=== PATIENT | female | born 1955 | race Caucasian/White ===

== ENCOUNTER 2019-01-27 15:31 | Emergency (ER) | payer MEDICARE ==
[2019-01-27 15:39] VITALS: RESP 18
[2019-01-27] MEDS ORDERED: PANTOPRAZOLE 40 MG/10 ML VIAL IVP STA (16:08)
[2019-01-27] MEDS ORDERED: SODIUM CHLORIDE 0.9% 1,000 ML IV STA (16:08)
[2019-01-27] MEDS ORDERED: MORPHINE SULFATE 4 MG/ML SYRINGE IVP STA (16:13)
--- NOTE | 2019-01-27 16:25 | ED ---
GI Bleed HPI - General Chief complaint: GI Bleed Stated complaint: Rectal bleeding Time Seen by Provider: 01/27/19 15:41 Source: patient Mode of arrival: ambulatory Limitations: no limitations - History of Present Illness Initial comments: Patient is a 63-year-old female presenting to the emergency Department with complaints of bloody diarrhea that started yesterday. Patient states she's been having left upper quadrant pain for approximately 10 days and then 2 days ago started having nausea, one episode of vomiting as well as diarrhea that is descr ibed as black, tarry, red in nature. Patient has had about 10 bowel movements yesterday and today. Patient did go to her PCP, Dr. Mojica, today and they then sent her to the ER for further evaluation. Patient describes her abdominal pain as left upper quadrant, underneath her ribs that sometimes radiates to her left flank area. It is constant in nature and feels like a pressure, sharp pain. Th ere is no alleviating or aggravating factors. Patient denies any trauma to the area. Patient admits to hysterectomy and tubal ligation, no other abdominal surgeries. Patient does admit to needing a blood transfusion approximately 3 years ago. Patient has been eating and drinking as normal until about 2 days ago. Patient has been having regular bowel movements up until the diarrhea started 2 days ago. Patient denies chest pain, shortness of breath, headache. Patient has no other complaints at this time. Upon arrival to the ER, vital signs are stable. - Related Data Previous Rx's Medication Instructions Recorded Ondansetron Odt [Zofran Odt] 4 mg PO Q8HR PRN #10 tab 01/27/19 Allergies Allergy/AdvReac Type Severity Reaction Status Date / Time lisinopril Allergy Anaphylaxis Verified 01/27/19 15:34 Penicillins Allergy Rash/Hives Verified 01/27/19 15:34 Review of Systems ROS Statement: Those systems with pertinent positive or pertinent negative responses have been documented in the HPI. ROS Other: All systems not noted in ROS Statement are negative. Past Medical History Past Medical History: Fibromyalgia, GERD/Reflux, Hypertension, Thyroid Disorder History of Any Multi-Drug Resistant Organisms: None Reported Past Surgical History: Hysterectomy Additional Past Surgical History / Comment(s): thyroidectomy Past Psychological History: Anxiety Smoking Status: Never smoker Past Alcohol Use History: None Reported Past Drug Use History: None Reported General Exam - General Exam Comments Initial Comments: GENERAL: Patient appears slightly pale, and in no acute distress. HEAD: Atraumatic, normocephalic. EYES: Pupils equal round and reactive to light, extraocular movements intact, sclera anicteric, conjunctiva are normal. ENT: TMs normal, nares patent, oropharynx clear without exudates. Moist mucous membranes. NECK: Normal range of motion, supple without lymphadenopathy or JVD. LUNGS: Breath sounds clear to auscultation bilaterally and equal. No wheezes rales or rhonchi. HEART: Regular rate and rhythm without murmurs, rubs or gallops. ABDOMEN: Tender to palpation of the left upper quadrant as well as left lower ribs and left flank. Soft, normoactive bowel sounds. No guarding, no rebound. No masses appreciated. : Deferred EXTREMITIES: Normal range of motion, no pitting or edema. No clubbing or cyanosis. NEUROLOGICAL: Normal speech, normal gait. PSYCH: Normal mood, normal affect. SKIN: Warm, Dry, normal turgor, no rashes or lesions noted. There are some mild bruises that appear to be a few days old, one on the left side of the abdomen, one on the left flank area, and one in the mid abdomen. Limitations: no limitations Rectal exam: Present: normal rectal tone, heme (-) stool, hemorrhoids (Very mild, small external hemorrhoid). Absent: fecal impaction, mass, tenderness Course Vital Signs 01/27/19 15:34 Temperature 97.8 F Pulse Rate 66 Respiratory 18 Rate Blood Pressure 122/81 O2 Sat by Pulse 99 Oximetry Medical Decision Making - Medical Decision Making Patient is a 63-year-old female sent from Dr. Mojica's office for possible rectal bleeding x 1 day as well as left upper quadrant pain 10 days. No fevers, vital signs are stable. Mild leukocytosis at 12.1, rest of the labs show no acute abnormalities. Troponin is normal. Lipase is normal. Lactic acid is 1.5. UA is normal. Stool occult blood is negative. CT of the abdomen shows left colonic wall thickening, colitis is favored over diverticulitis. An additional finding of an increase in size of the left adrenal mass measuring 2.4 cm, recommend follow-up MRI. I discussed these findings with the patient and her symptoms are most likely related to colitis. Patient received fluids as well as Zofran and pain medication and reports improvement in her symptoms. Patient is stable for discharge at this time and she is in agreement with this plan of care. Patient will be discharged with Zofran to take as needed for nausea. Patient will follow-up with Dr. Mojica. Return parameters were discussed with the patient and she verbalized understanding. Case discussed with Dr. Douglas. - Lab Data Result diagrams: 01/27/19 15:45 01/27/19 15:45 Lab Results 01/27/19 01/27/19 01/27/19 Range/Units 15:45 15:45 15:45 WBC 12.1 H (3.8-10.6) k/uL RBC 4.87 (3.80-5.40) m/uL Hgb 13.9 (11.4-16.0) gm/dL Hct 44.0 (34.0-46.0) % MCV 90.3 (80.0-100.0) fL MCH 28.6 (25.0-35.0) pg MCHC 31.7 (31.0-37.0) g/dL RDW 14.1 (11.5-15.5) % Plt Count 245 (150-450) k/uL Neutrophils % 69 % Lymphocytes % 24 % Monocytes % 4 % Eosinophils % 2 % Basophils % 0 % Neutrophils # 8.4 H (1.3-7.7) k/uL Lymphocytes # 2.9 (1.0-4.8) k/uL Monocytes # 0.5 (0-1.0) k/uL Eosinophils # 0.2 (0-0.7) k/uL Basophils # 0.0 (0-0.2) k/uL PT (9.0-12.0) sec INR (<1.2) APTT (22.0-30.0) sec Sodium 143 (137-145) mmol/L Potassium 3.7 (3.5-5.1) mmol/L Chloride 104 (98-107) mmol/L Carbon Dioxide 30 (22-30) mmol/L Anion Gap 9 mmol/L BUN 23 H (7-17) mg/dL Creatinine 1.06 H (0.52-1.04) mg/dL Est GFR (CKD-EPI)AfAm 65 (>60 ml/min/1.73 sqM) Est GFR (CKD-EPI)NonAf 57 (>60 ml/min/1.73 sqM) Glucose 98 (74-99) mg/dL Plasma Lactic Acid Jose David 1.5 (0.7-2.0) mmol/L Calcium 8.9 (8.4-10.2) mg/dL Magnesium 1.8 (1.6-2.3) mg/dL Total Bilirubin 0.6 (0.2-1.3) mg/dL AST 28 (14-36) U/L ALT 37 (9-52) U/L Alkaline Phosphatase 118 (38-126) U/L Troponin I (0.000-0.034) ng/mL Total Protein 7.0 (6.3-8.2) g/dL Albumin 4.1 (3.5-5.0) g/dL Amylase 30 (30-110) U/L Lipase 142 (23-300) U/L Urine Color Urine Appearance (Clear) Urine pH (5.0-8.0) Ur Specific [place] (1.001-1.035) Urine Protein (Negative) Urine Glucose (UA) (Negative) Urine Ketones (Negative) Urine Blood (Negative) Urine Nitrite (Negative) Urine Bilirubin (Negative) Urine Urobilinogen (<2.0) mg/dL Ur Leukocyte Esterase (Negative) Stool Occult Blood (Negative) Blood Type Blood Type Recheck Bld Type Recheck Status Antibody Screen Spec Expiration Date 01/27/19 01/27/19 01/27/19 Range/Units 15:45 15:45 15:45 WBC (3.8-10.6) k/uL RBC (3.80-5.40) m/uL Hgb (11.4-16.0) gm/dL Hct (34.0-46.0) % MCV (80.0-100.0) fL MCH (25.0-35.0) pg MCHC (31.0-37.0) g/dL RDW (11.5-15.5) % Plt Count (150-450) k/uL Neutrophils % % Lymphocytes % % Monocytes % % Eosinophils % % Basophils % % Neutrophils # (1.3-7.7) k/uL Lymphocytes # (1.0-4.8) k/uL Monocytes # (0-1.0) k/uL Eosinophils # (0-0.7) k/uL Basophils # (0-0.2) k/uL PT 10.6 (9.0-12.0) sec INR 1.0 (<1.2) APTT 24.9 (22.0-30.0) sec Sodium (137-145) mmol/L Potassium (3.5-5.1) mmol/L Chloride (98-107) mmol/L Carbon Dioxide (22-30) mmol/L Anion Gap mmol/L BUN (7-17) mg/dL Creatinine (0.52-1.04) mg/dL Est GFR (CKD-EPI)AfAm (>60 ml/min/1.73 sqM) Est GFR (CKD-EPI)NonAf (>60 ml/min/1.73 sqM) Glucose (74-99) mg/dL Plasma Lactic Acid Jose David (0.7-2.0) mmol/L Calcium (8.4-10.2) mg/dL Magnesium (1.6-2.3) mg/dL Total Bilirubin (0.2-1.3) mg/dL AST (14-36) U/L ALT (9-52) U/L Alkaline Phosphatase (38-126) U/L Troponin I <0.012 (0.000-0.034) ng/mL Total Protein (6.3-8.2) g/dL Albumin (3.5-5.0) g/dL Amylase (30-110) U/L Lipase (23-300) U/L Urine Color Urine Appearance (Clear) Urine pH (5.0-8.0) Ur Specific [place] (1.001-1.035) Urine Protein (Negative) Urine Glucose (UA) (Negative) Urine Ketones (Negative) Urine Blood (Negative) Urine Nitrite (Negative) Urine Bilirubin (Negative) Urine Urobilinogen (<2.0) mg/dL Ur Leukocyte Esterase (Negative) Stool Occult Blood (Negative) Blood Type B Positive Blood Type Recheck B Pos Bld Type Recheck Status No Antibody Screen NEGATIVE Spec Expiration Date 01/30/2019 - 234401/27/19 01/27/19 Range/Units 17:00 17:30 WBC (3.8-10.6) k/uL RBC (3.80-5.40) m/uL Hgb (11.4-16.0) gm/dL Hct (34.0-46.0) % MCV (80.0-100.0) fL MCH (25.0-35.0) pg MCHC (31.0-37.0) g/dL RDW (11.5-15.5) % Plt Count (150-450) k/uL Neutrophils % % Lymphocytes % % Monocytes % % Eosinophils % % Basophils % % Neutrophils # (1.3-7.7) k/uL Lymphocytes # (1.0-4.8) k/uL Monocytes # (0-1.0) k/uL Eosinophils # (0-0.7) k/uL Basophils # (0-0.2) k/uL PT (9.0-12.0) sec INR (<1.2) APTT (22.0-30.0) sec Sodium (137-145) mmol/L Potassium (3.5-5.1) mmol/L Chloride (98-107) mmol/L Carbon Dioxide (22-30) mmol/L Anion Gap mmol/L BUN (7-17) mg/dL Creatinine (0.52-1.04) mg/dL Est GFR (CKD-EPI)AfAm (>60 ml/min/1.73 sqM) Est GFR (CKD-EPI)NonAf (>60 ml/min/1.73 sqM) Glucose (74-99) mg/dL Plasma Lactic Acid Jose David (0.7-2.0) mmol/L Calcium (8.4-10.2) mg/dL Magnesium (1.6-2.3) mg/dL Total Bilirubin (0.2-1.3) mg/dL AST (14-36) U/L ALT (9-52) U/L Alkaline Phosphatase (38-126) U/L Troponin I (0.000-0.034) ng/mL Total Protein (6.3-8.2) g/dL Albumin (3.5-5.0) g/dL Amylase (30-110) U/L Lipase (23-300) U/L Urine Color Yellow Urine Appearance Clear (Clear) Urine pH 5.5 (5.0-8.0) Ur Specific [place] >1.050 H (1.001-1.035) Urine Protein Trace H (Negative) Urine Glucose (UA) Negative (Negative) Urine Ketones Negative (Negative) Urine Blood Negative (Negative) Urine Nitrite Negative (Negative) Urine Bilirubin Negative (Negative) Urine Urobilinogen <2.0 (<2.0) mg/dL Ur Leukocyte Esterase Negative (Negative) Stool Occult Blood Negative (Negative) Blood Type Blood Type Recheck Bld Type Recheck Status Antibody Screen Spec Expiration Date Disposition Clinical Impression: Colitis, Hemorrhoid Disposition: HOME SELF-CARE Condition: Stable Instructions (If sedation given, give patient instructions): Colitis (ED) Additional Instructions: Please return to the Emergency Department if symptoms worsen or any other concerns. Continue with fluids as well as starting a bland diet. Take Zofran as needed for nausea. Follow-up with Dr. Mojica if symptoms persist. Prescriptions: Ondansetron Odt [Zofran Odt] 4 mg PO Q8HR PRN #10 tab PRN Reason: Nausea Is patient prescribed a controlled substance at d/c from ED?: No Referrals: No Mojica MD [Primary Care Provider] - 1-2 days
[2019-01-27 16:31] LABS: Basophils % (A) 0 %; Eosinophils # (A) 0.2 k/uL (0-0.7); Eosinophils % (A) 2 %; HGB 13.9 gm/dL (11.4-16.0); Lymphocytes # (A) 2.9 k/uL (1.0-4.8); Lymphocytes % (A) 24 %; MCH 28.6 pg (25.0-35.0); MCHC 31.7 g/dL (31.0-37.0); MCV 90.3 fL (80.0-100.0); Mean Platelet Volume 7.8; Monocytes # (A) 0.5 k/uL (0-1.0); Monocytes % (A) 4 %; Neutrophils # (A) 8.4 k/uL (1.3-7.7); Neutrophils % (A) 69 %; Platelet Count 245 k/uL (150-450); RBC 4.87 m/uL (3.80-5.40); RDW 14.1 % (11.5-15.5); WBC 12.1 k/uL (3.8-10.6)
[2019-01-27 16:39] LABS: Albumin 4.1 g/dL (3.5-5.0); Calcium 8.9 mg/dL (8.4-10.2); Magnesium 1.8 mg/dL (1.6-2.3); Potassium 3.7 mmol/L (3.5-5.1); Total Bilirubin 0.6 mg/dL (0.2-1.3)
[2019-01-27 16:44] LABS: Partial Thromboplastin Time 24.9 sec (22.0-30.0); Prothrombin Time 10.6 sec (9.0-12.0)
[2019-01-27 17:36] LABS: Appearance,Urine Clear (Clear); Bilirubin,Urine Negative (Negative); Blood,Urine Negative (Negative); Color,Urine Yellow; Glucose,Urine (UA) Negative (Negative); Ketones,Urine Negative (Negative); Leukocyte Esterase,Urine Negative (Negative); Nitrite,Urine Negative (Negative); PH, Urine 5.5 (5.0-8.0); Protein,Urine Trace (Negative); Urobilinogen,Urine <2.0 mg/dL (<2.0)
--- NOTE | 2019-01-27 17:44 | CT ---
EXAMINATION TYPE: CT abdomen pelvis w con DATE OF EXAM: 01/27/2019 COMPARISON: MRI 10/25/2011 HISTORY: Left sided abdominal pain and bloody diarrhea. CT DLP: 1091.8 mGycm Automated exposure control for dose reduction was used. CONTRAST: CT scan of the abdomen pelvis is performed with IV Contrast, patient injected with 100 mL of Isovue 3 00. FINDINGS- LUNG BASES-linear changes involving the lung bases suggestive of scar or atelectasis.. LIVER/GB- No gross abnormality is appreciated. PANCREAS- No gross abnormality is seen. SPLEEN- No gross abnormality is seen. Accessory spleen incidentally noted ADRENALS-2.4 cm left adrenal mass is incidentally noted noticeably increased from the prior MRI where it measured 9 mm. KIDNEYS/BLADDER- no hydronephrosis nephrolithiasis or renal mass. BOWEL-there is marked bowel wall thickening involving the left colon with pericolonic inflammatory ch anges. Diverticular seen in the sigmoid region away from the area of inflammatory change. Therefore c olitis is favored over diverticulitis. Correlate for infectious, inflammatory or ischemic colitis. LYMPH NODES- No greater than 1cm abdominal or pelvic lymph nodes areappreciated. OSSEOUS STRUCTURES- No significant abnormality is seen. OTHER- aorta of normal caliber. No free fluid or free air. IMPRESSION- 1. Left colonic wall thickening with pericolonic inflammatory change. Colitis is favored over diverti culitis correlate clinically. Follow-up to resolution recommended to exclude underlying neoplasm. 2. There is been noticeable interval increase in size of a left adrenal mass measuring 2.4 cm which d oes not meet the criteria of an adrenal adenoma. Presenting measured 9 mm. Recommend follow-up MRI of the adrenal glands.
[2019-01-27 17:56] LABS: Specific Gravity,Urine >1.050 (1.001-1.035)
[2019-01-27] MEDS ORDERED: ONDANSETRON 4 MG ODT STARTER PACK 2 TAB BTL PO STA (18:28)
[2019-01-27 18:59] VITALS: BP 127/80; PULSE 62; TEMP 97.3
== END 2019-01-27 19:08 | disposition home or self-care (01) ==
LOC: EC 15:31
DX: K52.9 Noninfective gastroenteritis and colitis, unspecified (principal); K64.9 Unspecified hemorrhoids; E27.9 Disorder of adrenal gland, unspecified; D72.829 Elevated white blood cell count, unspecified; E07.9 Disorder of thyroid, unspecified; I10 Essential (primary) hypertension; K21.9 Gastro-esophageal reflux disease without esophagitis; Z88.0 Allergy status to penicillin; Z88.8 Allergy status to other drugs, medicaments and biological substances; Z90.710 Acquired absence of both cervix and uterus
CPT/HCPCS: 36415; 86900; 86901; 80053; 82150; 83605; 83690; 83735; 84484; 85025; 85610; 85730; 86850; 82272; 81003; 74177; 99285; 96374; 96375; 96361 ×2; J2270; S0119; C9113; Q9967

== ENCOUNTER 2019-01-31 07:19 | Emergency (ER) | payer MEDICARE ==
[2019-01-31 07:26] VITALS: RESP 16; TEMP 98.4
[2019-01-31] MEDS ORDERED: SODIUM CHLORIDE 0.9% 1,000 ML IV STA (07:34)
[2019-01-31] MEDS ORDERED: MORPHINE SULFATE 4 MG/ML SYRINGE IV STA (07:34)
[2019-01-31] MEDS ORDERED: ONDANSETRON 4 MG/2 ML VIAL IVP STA (07:34)
[2019-01-31] MEDS ORDERED: SODIUM CHLORIDE 0.9% 2,000 ML IV STA (07:34)
--- NOTE | 2019-01-31 07:42 | ED ---
Abdominal Pain HPI - General Chief Complaint: Abdominal Pain Stated Complaint: Left side pain Time Seen by Provider: 01/31/19 07:29 Source: patient, RN notes reviewed, old records reviewed Mode of arrival: ambulatory Limitations: no limitations - History of Present Illness Initial Comments: Patient is a 63-year-old female. She presents today for evaluation for left- sided abdominal pain. Patient's reports that she has been dealing with colitis and was diagnosed with this on of this past week. She reports that she's had persistent pain since that time. She denies any fevers or chills. She just complains of diarrhea. She states that the diarrhea is not bloody. She's also had multiple episodes of vomiting. Patient states that she's had chills but no specific fever. She denies any changes in urination. She does report the pain seems to be sharp and stabbing within the past 24 hours. She rates her pain a 7 out of 10. - Related Data Previous Rx's Medication Instructions Recorded Ondansetron Odt [Zofran Odt] 4 mg PO Q8HR PRN #10 tab 01/27/19 Ciprofloxacin HCl [Cipro] 500 mg PO Q12HR #14 tablet 01/31/19 Dicyclomine [Bentyl] 10 mg PO QID #10 capsule 01/31/19 metroNIDAZOLE [Flagyl] 500 mg PO QID #21 tab 01/31/19 Allergies Allergy/AdvReac Type Severity Reaction Status Date / Time lisinopril Allergy Anaphylaxis Verified 01/31/19 07:27 Penicillins Allergy Rash/Hives Verified 01/31/19 07:27 Review of Systems ROS Statement: Those systems with pertinent positive or pertinent negative responses have been documented in the HPI. ROS Other: All systems not noted in ROS Statement are negative. Past Medical History Past Medical History: Fibromyalgia, GERD/Reflux, Hypertension, Thyroid Disorder Additional Past Medical History / Comment(s): COLITIS History of Any Multi-Drug Resistant Organisms: None Reported Past Surgical History: Hysterectomy Additional Past Surgical History / Comment(s): thyroidectomy Past Psychological History: Anxiety Smoking Status: Never smoker Past Alcohol Use History: None Reported Past Drug Use History: None Reported General Exam - General Exam Comments Initial Comments: This is a 63-year-old female. Alert and oriented 3. Patient appears in no significant distress. Limitations: no limitations General appearance: alert, in no apparent distress Head exam: Present: atraumatic, normocephalic, normal inspection Eye exam: Present: normal appearance, PERRL, EOMI. Absent: scleral icterus, conjunctival injection, periorbital swelling ENT exam: Present: normal exam, mucous membranes moist Neck exam: Present: normal inspection. Absent: tenderness, meningismus, lymphadenopathy Respiratory exam: Present: normal lung sounds bilaterally. Absent: respiratory distress, wheezes, rales, rhonchi, stridor Cardiovascular Exam: Present: regular rate GI/Abdominal exam: Present: soft, tenderness (LLQ tenderness ) Extremities exam: Present: normal inspection, full ROM, normal capillary refill. Absent: tenderness, pedal edema, joint swelling, calf tenderness Back exam: Present: normal inspection Neurological exam: Present: alert Psychiatric exam: Present: normal affect, normal mood Course Vital Signs 01/31/19 07:23 Temperature 98.4 F Pulse Rate 71 Respiratory 16 Rate Blood Pressure 135/90 O2 Sat by Pulse 97 Oximetry Medical Decision Making - Medical Decision Making 63-year-old female presents today for treatment of left-sided sharp abdominal pain. Symptoms for the past 5 days. She is treated and diagnosed with colitis. She's been to . She states she's been having some vomiting and diarrhea. Patient is side has normal white blood cell count. Kidney R [place] are unr emarkable. There is persistent pain repeat computed tomography scan was ordered. There is evidence continued of colitis. No signs of perforation free air or abscess. She is also made aware of the adrenal mass that she is follow- up with her primary care doctor. Patient advised systemic initiate Bentyl to help with the spasming sharp pains. I discussed she follow up with her primary care doctor on Friday. - Lab Data Result diagrams: 01/31/19 07:45 01/31/19 07:45 Lab Results 01/31/19 01/31/19 01/31/19 Range/Units 07:45 07:45 07:45 WBC 8.0 (3.8-10.6) k/uL RBC 4.65 (3.80-5.40) m/uL Hgb 13.4 (11.4-16.0) gm/dL Hct 41.7 (34.0-46.0) % MCV 89.7 (80.0-100.0) fL MCH 28.7 (25.0-35.0) pg MCHC 32.0 (31.0-37.0) g/dL RDW 13.8 (11.5-15.5) % Plt Count 263 (150-450) k/uL Neutrophils % 69 % Lymphocytes % 23 % Monocytes % 4 % Eosinophils % 3 % Basophils % 0 % Neutrophils # 5.5 (1.3-7.7) k/uL Lymphocytes # 1.8 (1.0-4.8) k/uL Monocytes # 0.3 (0-1.0) k/uL Eosinophils # 0.3 (0-0.7) k/uL Basophils # 0.0 (0-0.2) k/uL PT (9.0-12.0) sec INR (<1.2) APTT (22.0-30.0) sec Sodium 143 (137-145) mmol/L Potassium 3.8 (3.5-5.1) mmol/L Chloride 108 H (98-107) mmol/L Carbon Dioxide 26 (22-30) mmol/L Anion Gap 9 mmol/L BUN 24 H (7-17) mg/dL Creatinine 0.93 (0.52-1.04) mg/dL Est GFR (CKD-EPI)AfAm 77 (>60 ml/min/1.73 sqM) Est GFR (CKD-EPI)NonAf 67 (>60 ml/min/1.73 sqM) Glucose 116 H (74-99) mg/dL Plasma Lactic Acid Jose David 1.1 (0.7-2.0) mmol/L Calcium 8.2 L (8.4-10.2) mg/dL Total Bilirubin 0.4 (0.2-1.3) mg/dL AST 23 (14-36) U/L ALT 22 (4-34) U/L Alkaline Phosphatase 104 (38-126) U/L Troponin I (0.000-0.034) ng/mL Total Protein 6.7 (6.3-8.2) g/dL Albumin 3.8 (3.5-5.0) g/dL Amylase 33 (30-110) U/L Lipase 301 H (23-300) U/L Urine Color Urine Appearance (Clear) Urine pH (5.0-8.0) Ur Specific [place] (1.001-1.035) Urine Protein (Negative) Urine Glucose (UA) (Negative) Urine Ketones (Negative) Urine Blood (Negative) Urine Nitrite (Negative) Urine Bilirubin (Negative) Urine Urobilinogen (<2.0) mg/dL Ur Leukocyte Esterase (Negative) Urine RBC (0-5) /hpf Urine WBC (0-5) /hpf Ur Squamous Epith Cells (0-4) /hpf Urine Bacteria (None) /hpf Hyaline Casts (0-2) /lpf Urine Mucus (None) /hpf 01/31/19 01/31/19 01/31/19 Range/Units 07:45 07:45 07:45 WBC (3.8-10.6) k/uL RBC (3.80-5.40) m/uL Hgb (11.4-16.0) gm/dL Hct (34.0-46.0) % MCV (80.0-100.0) fL MCH (25.0-35.0) pg MCHC (31.0-37.0) g/dL RDW (11.5-15.5) % Plt Count (150-450) k/uL Neutrophils % % Lymphocytes % % Monocytes % % Eosinophils % % Basophils % % Neutrophils # (1.3-7.7) k/uL Lymphocytes # (1.0-4.8) k/uL Monocytes # (0-1.0) k/uL Eosinophils # (0-0.7) k/uL Basophils # (0-0.2) k/uL PT 10.5 (9.0-12.0) sec INR 1.0 (<1.2) APTT 25.0 (22.0-30.0) sec Sodium (137-145) mmol/L Potassium (3.5-5.1) mmol/L Chloride (98-107) mmol/L Carbon Dioxide (22-30) mmol/L Anion Gap mmol/L BUN (7-17) mg/dL Creatinine (0.52-1.04) mg/dL Est GFR (CKD-EPI)AfAm (>60 ml/min/1.73 sqM) Est GFR (CKD-EPI)NonAf (>60 ml/min/1.73 sqM) Glucose (74-99) mg/dL Plasma Lactic Acid Jose David (0.7-2.0) mmol/L Calcium (8.4-10.2) mg/dL Total Bilirubin (0.2-1.3) mg/dL AST (14-36) U/L ALT (4-34) U/L Alkaline Phosphatase (38-126) U/L Troponin I <0.012 (0.000-0.034) ng/mL Total Protein (6.3-8.2) g/dL Albumin (3.5-5.0) g/dL Amylase (30-110) U/L Lipase (23-300) U/L Urine Color Yellow Urine Appearance Clear (Clear) Urine pH 5.5 (5.0-8.0) Ur Specific [place] 1.022 (1.001-1.035) Urine Protein Negative (Negative) Urine Glucose (UA) Negative (Negative) Urine Ketones Negative (Negative) Urine Blood Negative (Negative) Urine Nitrite Negative (Negative) Urine Bilirubin Negative (Negative) Urine Urobilinogen <2.0 (<2.0) mg/dL Ur Leukocyte Esterase Small H (Negative) Urine RBC 1 (0-5) /hpf Urine WBC 3 (0-5) /hpf Ur Squamous Epith Cells 6 H (0-4) /hpf Urine Bacteria Rare H (None) /hpf Hyaline Casts 3 H (0-2) /lpf Urine Mucus Moderate H (None) /hpf 01/31/19 08:39 EKG performed at 8:00 shows sinus bradycardia, left axis deviation. Nonspecific T-wave abnormality. Abnormal EKG. Ventricular rate of 59 bpm. Was 158 ms. QS duration is 86 ms. QT QTc is 446/441 ms. No evidence of ST elevation. - Radiology Data Radiology results: report reviewed CT shows diffuse colonic thickening from sigmoid colon to proximal descending colon status of colitis. Please correlate clinically. Left adrenal mass lesion when she may have enlarged slightly from previous study. Right adrenal malignancy will need to be excluded. Disposition Clinical Impression: Colitis, Adrenal mass Disposition: HOME SELF-CARE Condition: Good Instructions (If sedation given, give patient instructions): Colitis (ED) Additional Instructions: Patient has follow-up with your primary care physician. Return to emergency department if any alarming signs or symptoms occur. Take medications as prescribed. Prescriptions: Dicyclomine [Bentyl] 10 mg PO QID #10 capsule Ciprofloxacin HCl [Cipro] 500 mg PO Q12HR #14 tablet metroNIDAZOLE [Flagyl] 500 mg PO QID #21 tab Is patient prescribed a controlled substance at d/c from ED?: No Referrals: No Mojica MD [Primary Care Provider] - 1-2 days Time of Disposition: 11:15
[2019-01-31 08:04] LABS: Basophils % (A) 0 %; Eosinophils # (A) 0.3 k/uL (0-0.7); Eosinophils % (A) 3 %; HCT 41.7 % (34.0-46.0); HGB 13.4 gm/dL (11.4-16.0); Lymphocytes # (A) 1.8 k/uL (1.0-4.8); Lymphocytes % (A) 23 %; MCH 28.7 pg (25.0-35.0); MCV 89.7 fL (80.0-100.0); Mean Platelet Volume 7.7; Monocytes # (A) 0.3 k/uL (0-1.0); Monocytes % (A) 4 %; Neutrophils # (A) 5.5 k/uL (1.3-7.7); Neutrophils % (A) 69 %; Platelet Count 263 k/uL (150-450); RBC 4.65 m/uL (3.80-5.40); RDW 13.8 % (11.5-15.5)
[2019-01-31 08:10] LABS: Albumin 3.8 g/dL (3.5-5.0); Calcium 8.2 mg/dL (8.4-10.2); Potassium 3.8 mmol/L (3.5-5.1); Total Bilirubin 0.4 mg/dL (0.2-1.3); Total Protein 6.7 g/dL (6.3-8.2)
[2019-01-31 08:23] LABS: Prothrombin Time 10.5 sec (9.0-12.0)
[2019-01-31 09:09] LABS: Appearance,Urine Clear (Clear); Bacteria,Urine Rare /hpf; Bilirubin,Urine Negative (Negative); Blood,Urine Negative (Negative); Color,Urine Yellow; Glucose,Urine (UA) Negative (Negative); Hyaline Casts,Urine 3 /lpf (0-2); Ketones,Urine Negative (Negative); Leukocyte Esterase,Urine Small (Negative); Mucus,Urine Moderate /hpf; Nitrite,Urine Negative (Negative); PH, Urine 5.5 (5.0-8.0); Protein,Urine Negative (Negative); RBC,Urine 1 /hpf (0-5); Specific Gravity,Urine 1.022 (1.001-1.035); Squamous Epithelial Cell,Urine 6 /hpf (0-4); Urobilinogen,Urine <2.0 mg/dL (<2.0); WBC,Urine 3 /hpf (0-5)
--- NOTE | 2019-01-31 10:34 | CT ---
EXAMINATION TYPE: CT abdomen pelvis w con DATE OF EXAM: 01/31/2019 REFERENCE: Previous study dated 01/27/2019. HISTORY: LLQ pain, worsening. HISTORY: Left sided pain getting worse from prior visit. CT DLP: 1087.8 mGy Automated exposure control for dose reduction was used. TECHNIQUE: Helical acquisition through the abdomen and pelvis was obtained following the oral ingesti on of without Oral Contrast and following intravenous administration of 100 mL of Isovue 370. The aminah a was reformatted in axial, coronal and sagittal projections. FINDINGS: There is minimal dependent atelectasis at the lung bases. There is no pleural pericardial fluid. The heart is minimally enlarged. Within the abdomen, the liver, spleen and gallbladder are normal. There is a splenule in the hilus of the spleen. The right adrenal gland is normal. There is an irregular 2.8 cm left adrenal mass. This is undergone further growth previous study which time it measured 2.6 cm. This may be within the areas of measure ent. Both kidneys demonstrate function and appear morphologically normal. The pancreas is normal. No significant retroperitoneal, iliac or inguinal adenopathy. Bladder is unremarkable. The uterus and ovaries are not visualized. There is mucosal thickening involving the sigmoid colon as well as the descending colon. The appendix is not visualized. There is sacralization of the distal small bowel suggesting small bowel spaces. There is no free fluid and no free air. There is facet arthropathy in the lower lumbar spine. IMPRESSION: 1. DIFFUSE COLONIC THICKENING FROM THE SIGMOID COLON TO THE PROXIMAL DESCENDING COLON SUGGESTIVE OF C OLITIS. PLEASE CORRELATE CLINICALLY. 2. LEFT ADRENAL MASS LESION WHICH MAY HAVE ENLARGED SLIGHTLY FROM THE PREVIOUS STUDY. ADRENAL MALIGNA NCY WOULD NEED TO BE EXCLUDED. 3. SACRALIZATION OF THE DISTAL SMALL BOWEL SUGGESTING SMALL BOWEL STASIS.
[2019-01-31] MEDS ORDERED: KETOROLAC 30 MG/ML 1 ML VIAL IVP STA (10:45)
[2019-01-31] MEDS ORDERED: metroNIDAZOLE 500 MG TAB PO STA (11:16)
[2019-01-31] MEDS ORDERED: CIPROFLOXACIN HCL 500 MG TAB PO STA (11:16)
[2019-01-31 11:42] VITALS: BP 141/75; PULSE 76
== END 2019-01-31 11:36 | disposition home or self-care (01) ==
LOC: EC 07:19
DX: K52.9 Noninfective gastroenteritis and colitis, unspecified (principal); E27.8 Other specified disorders of adrenal gland; Z88.0 Allergy status to penicillin; Z88.8 Allergy status to other drugs, medicaments and biological substances
CPT/HCPCS: 36415; 93005; 80053; 82150; 83605; 83690; 84484; 85025; 85610; 85730; 81001; 74177; 99285; 96374; 96375 ×2; 96361; J2270; J2405; J1885; Q9967

== ENCOUNTER → 2019-02-23 | Outpatient (CLI) | payer MEDICARE ==
--- NOTE | 2019-02-24 07:05 | MR ---
EXAMINATION TYPE: MR abdomen wo/w con DATE OF EXAM: 02/23/2019 COMPARISON: MRI liver October 25, 2011. CT abdomen and pelvis January 31, 2019 and older study Dece mber 2018. HISTORY: Adrenal mass 1 cm to 4cm in diameter CONTRAST: Standard multiplanar, multisequence MRI departmental protocol utilizing 8.5 mL intravenous Gadavist g adolinium contrast. Imaging performed of the abdomen focusing on the adrenal glands. FINDINGS: Adrenal glands: Anterior-inferior aspect left adrenal gland redemonstrates 2.3 cm mass that shows kari ogeneous signal dropout consistent with benign lipid rich adenoma despite being new from 2012 MRI. Ri ght adrenal gland is normal in size. Other: Lung bases are clear. The liver, spleen, gallbladder, and pancreas are normal in size. There a re few simple appearing parapelvic cyst centrally in the left kidney. No hydronephrosis bilaterally. Aorta shows no aneurysm. No suspicious bowel dilatation. No abdominal ascites. No greater than 1 cm a bdominal adenopathy. IMPRESSION: I measuring 2.3 cm left anterior inferior adrenal mass that shows diffuse signal dropout consistent with benign lipid rich adenoma on MRI.
== END | disposition home or self-care (01) ==
LOC: RADMRIMAIN 08:25
PROVIDERS: ATTEND Internal Medicine
DX: E27.8 Other specified disorders of adrenal gland (principal)
CPT/HCPCS: 74183; A9585

== ENCOUNTER → 2019-03-16 | Outpatient (CLI) | payer MEDICARE ==
--- NOTE | 2019-03-17 11:23 | MM ---
Reason for exam: screening (asymptomatic). Last mammogram was performed 10 years and 4 months ago. History: Patient history of other cancer. Taking hormonal contraceptives for 15 years. Physical Findings: A clinical breast exam by your physician is recommended on an annual basis and results should be correlated with mammographic findings. MG 3D Screening Mammo W/Cad Bilateral CC and MLO view(s) were taken. Prior study comparison: November 14, 2008, bilateral digital screening mammogram. There are scattered fibroglandular densities. No suspicious abnormality. No significant changes when compared with prior studies. ASSESSMENT: Negative, BI-RAD 1 RECOMMENDATION: Routine screening mammogram of both breasts in 1 year.
== END | disposition home or self-care (01) ==
LOC: RADMAMWWP 07:20
PROVIDERS: ATTEND Internal Medicine
DX: Z12.31 Encounter for screening mammogram for malignant neoplasm of breast (principal)
CPT/HCPCS: 77063; 77067

== ENCOUNTER → 2021-03-07 | Day surgery (SDC) | payer MEDICARE ==
[2021-03-07 08:33] VITALS: BP 135/80; PULSE 66; RESP 18; TEMP 98.4
== END ==
LOC: ORWHC2ENDO 07:59
PROVIDERS: ATTEND Internal Medicine Gastroenterology
DX: D64.9 Anemia, unspecified (principal)
CPT/HCPCS: 91110